=== PATIENT | female | born 1965 | race Caucasian/White ===

== ENCOUNTER 2019-02-14 07:03 | Outpatient (CLI) | payer BC ==
--- NOTE | 2019-02-14 10:13 | ULT ---
THYROID ULTRASOUND: Date: 02/14/19 COMPARISON: None. HISTORY: Acquired hypothyroidism. TECHNIQUE: Multiplanar Saunders scale sonographic imaging of the thyroid gland obtained. FINDINGS: The thyroid isthmus measures approximately 1-2 mm in AP dimension. Right lobe measures 3.3 x 1.2 x 1.2 cm and left lobe measures 3.2 x 1.0 x 1.3 cm. There is a 5.0 x 5.0 x 5.0 mm hypoechoic nodule with probable rim calcification within the superior a spect of the left lobe. There is a hypoechoic solid lesion along the superior margin of the left lobe of the thyroid gland. T his measures approximately 1.7 x 1.8 cm. It is difficult to tell if this is an exophytic lesion emana ting from the superior aspect of the left lobe of the thyroid gland or if this is a lesion abutting t he superior aspect of the left lobe. This study is compared to the 04/02/16 examination. The small nodule within the left lobe is unchange d. The abnormality along the superior margin of the left lobe is not well assessed. IMPRESSION: Questionable hypoechoic lesion along the superior margin of the left lobe. This is incompletely asses sed on this examination. Recommend CT neck with IV contrast for further assessment. CODE T. POS: [facility]
== END 2019-02-14 07:04 | disposition home or self-care (01) ==
LOC: SCSULT 07:03
PROVIDERS: ATTEND Internal Medicine Endocrinology, Diabetes & Metabolism
DX: E03.9 Hypothyroidism, unspecified (principal)
CPT/HCPCS: 76536

== ENCOUNTER 2020-02-28 07:56 | Outpatient (CLI) | payer BC ==
--- NOTE | 2020-02-28 08:20 | BD ---
EXAM: Bone densitometry using DEXA HISTORY: 54 yo female. Screening for postmenopausal osteoporosis FINDINGS: L1--bone mineral density 0.842 g/sq cm; T score -1.3 ; Z score -0.4 L2--bone mineral density 0.877 g/sq cm; T score -1.4 ; Z score -0.3 L3--bone mineral density 0.873 g/sq cm; T score -1.9 ; Z score -0.8 L4--bone mineral density 0.916 g/sq cm; T score -1.3 ; Z score -0.1 Total L1-L4--bone mineral density 0.878 g/sq cm; T score -1.5 ; Z score -0.4 Left femoral neck--bone mineral density0.728; T score -1.1 ; Z score 0.0 Total proximal left femur--bone mineral density 0.802; T score -1.1 ; Z score -0.4 The 10 year fracture risk for a major osteoporotic fracture is 5.7% and for a hip fracture is 0.3%. IMPRESSION: Osteopenia
--- NOTE | 2020-02-28 10:12 | ULT ---
THYROID ULTRASOUND: INDICATION: Followup thyroid nodule. COMPARISON: Prior exam dated 02/15/2019. FINDINGS: The right thyroid lobe measures 3.1 x 1.6 x 1.3 mm. Thyroid isthmus measures 0.22 cm. The left thyr oid lobe measures 2.9 x 1.1 x 1.3 mm. The mixed solid and cystic nodule within the mid left thyroid gland is relatively stable in size. Th ere is some peripheral rim calcification associated with the lesion. The lesion measures approximate ly 6.6 x 6.3 mm in size where it measured on the prior with my measurement 6.5 x 6.4 mm. The hypoechoic ill-defined region involving the medial aspect of the superior pole of the left thyroi d gland is poorly defined on the current examination but is likely represent on image 22 and image 31 of the current series. This lesion measures approximately 2.0 x 1.3 mm where it previously measured approximately 1.9 x 1.3 cm. This is not well defined on the current ultrasound examination, some of which may be related to artifact. No suspicious abnormality is seen within the right thyroid gland. IMPRESSION: 1. Stable TIRADS4 lesion involving the mid aspect of the left thyroid gland. A followup examination in 1 year is recommended to document stability. 2. Hypoechoic ill-defined region seen adjacent to the medial aspect of the superior pole of the left thyroid gland appears stable to the prior exam. As a conservative measure, would recommend consider ation for a CT of the neck with Iv contrast for further assessment. POS: [id number]
== END 2020-02-28 07:57 | disposition home or self-care (01) ==
LOC: BICMAMMO 07:56
PROVIDERS: ATTEND Internal Medicine Endocrinology, Diabetes & Metabolism
DX: Z13.820 Encounter for screening for osteoporosis (principal); E55.9 Vitamin D deficiency, unspecified; E03.9 Hypothyroidism, unspecified; E04.1 Nontoxic single thyroid nodule; M85.89 Other specified disorders of bone density and structure, multiple sites
CPT/HCPCS: 76536; 77080

== ENCOUNTER 2021-04-03 08:36 | Outpatient (CLI) | payer BC | END 2021-04-03 08:37 | disposition home or self-care (01) | LOC: BICULT 08:36 | PROVIDERS: ATTEND Otolaryngology Otolaryngic Allergy | DX: E04.1 Nontoxic single thyroid nodule (principal); Q96.9 Turner's syndrome, unspecified | CPT/HCPCS: 76536 ==

== ENCOUNTER 2021-10-23 15:59 | Inpatient (IN) | payer BC ==
[2021-10-23 16:30] LABS: #Eosinphils 0.1 thou/uL (0.0-0.7); #Lymphocytes 1.5 thou/uL (1.20-3.40); #Monocytes 1.1 thou/uL (0.11-0.59); #Neutrophils 9.1 thou/uL (1.40-6.50); %Eosinophils 0.7 % (0.0-10.0); %Monocytes 9.3 % (0.0-10.0); Hemoglobin 12.2 g/dL (12.0-16.0); Mean Corpuscular HGB CONC 32.3 g/dL (32.0-36.0); Mean Corpuscular Hemoglobin 30.8 pg (27.0-31.0); Mean Corpuscular Volume 95.4 fL (78.0-98.0); Mean Platelet Volume 6.9 fL (7.4-10.4); Platelet Count 482 thou/uL (130-400); RBC Distribution Width 14.5 % (11.5-14.5); Red Blood Cell (RBC) Count 3.95 mill/uL (4.20-5.40); White Blood Cell (WBC) Count 11.8 thou/uL (4.8-10.8)
[2021-10-23] MEDS ORDERED: Metoprolol Tartrate 5 MG/5 ML VIAL ONE ×3 (16:40→21:41)
[2021-10-23 16:50] LABS: ALT (SGPT) 42 U/L (8-55); AST (SGOT) 45 U/L (5-34); Albumin 3.7 g/dL (3.5-5.0); Alkaline Phosphatase 118 U/L (40-110); Anion Gap 16 mmol/L (10-20); BUN (Urea Nitrogen) 10 mg/dL (9.8-20.1); Bilirubin, Total 0.6 mg/dL (0.2-1.2); Calc. Creatinine Clearance 0 mL/min (70-130); Calcium 9.9 mg/dL (7.8-10.44); Carbon Dioxide 28 mmol/L (22-29); Chloride 97 mmol/L (98-107); Estimated GFR 90; Globulin 3.6 g/dL (2.4-3.5); Glucose 91 mg/dL (70-105); Potassium 3.7 mmol/L (3.5-5.1); Protein, Total 7.3 g/dL (6.0-8.3); Sodium 137 mmol/L (136-145)
[2021-10-23 17:12] LABS: CKMB 1.8 ng/mL (0-6.6)
[2021-10-23 18:36] LABS: INR-International Normal Ratio 2.1
[2021-10-23 18:37] LABS: PTT 54.9 sec (22.9-36.1)
[2021-10-23] MEDS ORDERED: Warfarin Sodium 2.5 MG TAB PO SCH (19:45)
[2021-10-23] MEDS ORDERED: Warfarin Sodium 2 MG TAB PO SCH (19:45)
[2021-10-23 19:48] LABS: Troponin I 0.063 ng/mL (< 0.028)
[2021-10-23] MEDS ORDERED: Nitroglycerin 0.4 MG TAB 1 EACH ONE (21:47)
[2021-10-23] MEDS ORDERED: Amiodarone 150 MG/3 ML VIAL ONE ×2 (21:59→22:13)
[2021-10-23] MEDS ORDERED: Ondansetron PF 4 MG/2 ML Vial IVP PRN (22:02)
[2021-10-23] MEDS ORDERED: Acetaminophen 325 MG TAB PO PRN (22:02)
[2021-10-23 23:17] LABS: Magnesium 1.9 mg/dL (1.6-2.6)
[2021-10-23 23:23] LABS: Troponin I 0.064 ng/mL (< 0.028)
[2021-10-24] MEDS: Amiodarone 450 MG, Admixture Fee 1 EACH in Dextrose 5% in Water 250 ML IVPB SCH ×2 (01:03→08:37)
[2021-10-24 01:19] VITALS: BMI 22.3
[2021-10-24 03:43] LABS: INR-International Normal Ratio 2.2; Prothrombin Time 24.6 sec (12.0-14.7)
[2021-10-24 03:50] LABS: #Eosinphils 0.1 thou/uL (0.0-0.7); #Monocytes 1.1 thou/uL (0.11-0.59); #Neutrophils 7.5 thou/uL (1.40-6.50); %Basophils 0.1 % (0.0-1.0); %Eosinophils 0.7 % (0.0-10.0); %Lymphocytes 10.5 % (21.0-51.0); %Monocytes 11.2 % (0.0-10.0); %Neutrophils 77.6 % (42.0-75.0); Hemoglobin 10.1 g/dL (12.0-16.0); Mean Corpuscular HGB CONC 32.3 g/dL (32.0-36.0); Mean Corpuscular Hemoglobin 31.7 pg (27.0-31.0); Mean Corpuscular Volume 98.2 fL (78.0-98.0); Mean Platelet Volume 6.9 fL (7.4-10.4); Platelet Count 365 thou/uL (130-400); RBC Distribution Width 14.5 % (11.5-14.5); Red Blood Cell (RBC) Count 3.19 mill/uL (4.20-5.40); White Blood Cell (WBC) Count 9.6 thou/uL (4.8-10.8)
[2021-10-24 03:52] LABS: Anion Gap 14 mmol/L (10-20); BUN (Urea Nitrogen) 8 mg/dL (9.8-20.1); Calc. Creatinine Clearance 66 mL/min (70-130); Calcium 8.7 mg/dL (7.8-10.44); Carbon Dioxide 24 mmol/L (22-29); Chloride 103 mmol/L (98-107); Estimated GFR 105; Glucose 97 mg/dL (70-105); Magnesium 2.1 mg/dL (1.6-2.6); Potassium 3.8 mmol/L (3.5-5.1); Sodium 137 mmol/L (136-145)
[2021-10-24] MEDS ORDERED: Enoxaparin Sodium 40 MG/0.4 ML SYRINGE SC SCH (05:00)
[2021-10-24] MEDS: Levothyroxine Sodium 88 MCG TAB PO SCH (05:20)
[2021-10-24] MEDS ORDERED: Furosemide 20 MG/2 ML VIAL SLOW IVP SCH (06:00)
[2021-10-24] MEDS: Digoxin 0.125 MG TAB PO SCH (08:00)
[2021-10-24] MEDS: Torsemide 10 MG TAB PO SCH (08:37)
[2021-10-24] MEDS ORDERED: Aspirin 81 mg Enteric Coated Tablet PO SCH (09:00)
[2021-10-24] MEDS ORDERED: Amiodarone 450 MG in Dextrose 5% in Water 250 ML IVPB SCH (09:00)
[2021-10-24 09:45] LABS: Fluid, pH - Pleural Fld 7.45 (7.60 - 7.66)
[2021-10-24] MEDS ORDERED: predniSONE 20 MG TAB PO SCH (15:00)
[2021-10-24 15:37] LABS: Pleural Fluid, Protein 3.4 g/dL
[2021-10-24] MEDS: Warfarin Sodium 2 MG TAB PO SCH (16:30)
[2021-10-24] MEDS: Warfarin Sodium 2.5 MG TAB PO SCH (16:30)
[2021-10-25 03:56] LABS: #Lymphocytes 0.8 thou/uL (1.20-3.40); #Monocytes 0.8 thou/uL (0.11-0.59); #Neutrophils 9.5 thou/uL (1.40-6.50); %Basophils 0.2 % (0.0-1.0); %Eosinophils 0.3 % (0.0-10.0); %Monocytes 7.2 % (0.0-10.0); %Neutrophils 85.4 % (42.0-75.0); Hemoglobin 10.6 g/dL (12.0-16.0); Mean Corpuscular HGB CONC 32.6 g/dL (32.0-36.0); Mean Corpuscular Hemoglobin 31.3 pg (27.0-31.0); Mean Corpuscular Volume 96.1 fL (78.0-98.0); Mean Platelet Volume 6.8 fL (7.4-10.4); Platelet Count 426 thou/uL (130-400); RBC Distribution Width 14.3 % (11.5-14.5); Red Blood Cell (RBC) Count 3.37 mill/uL (4.20-5.40); White Blood Cell (WBC) Count 11.2 thou/uL (4.8-10.8)
[2021-10-25 04:10] LABS: INR-International Normal Ratio 3.3
[2021-10-25 04:15] LABS: Anion Gap 12 mmol/L (10-20); BUN (Urea Nitrogen) 9 mg/dL (9.8-20.1); Calc. Creatinine Clearance 70 mL/min (70-130); Carbon Dioxide 26 mmol/L (22-29); Chloride 102 mmol/L (98-107); Estimated GFR 106; Glucose 123 mg/dL (70-105); Potassium 3.8 mmol/L (3.5-5.1); Sodium 136 mmol/L (136-145)
[2021-10-25] MEDS: Levothyroxine Sodium 88 MCG TAB PO SCH (05:01)
[2021-10-25] MEDS ORDERED: Potassium Chloride 20 MEQ TAB PO SCH (08:15)
[2021-10-25] MEDS: Amiodarone 200 MG TAB PO SCH ×2 (09:14→20:46)
[2021-10-25] MEDS: Torsemide 10 MG TAB PO SCH (09:14)
[2021-10-25] MEDS: predniSONE 20 MG TAB PO SCH (09:15)
[2021-10-25] MEDS: Digoxin 0.125 MG TAB PO SCH (09:15)
[2021-10-25] MEDS: Warfarin Sodium 2 MG TAB PO SCH (16:27)
[2021-10-25] MEDS: Warfarin Sodium 2.5 MG TAB PO SCH (16:27)
[2021-10-26 04:37] LABS: #Eosinphils 0.2 thou/uL (0.0-0.7); #Lymphocytes 1.8 thou/uL (1.20-3.40); #Monocytes 1.2 thou/uL (0.11-0.59); #Neutrophils 10.1 thou/uL (1.40-6.50); %Basophils 0.1 % (0.0-1.0); %Eosinophils 1.2 % (0.0-10.0); %Lymphocytes 13.4 % (21.0-51.0); %Monocytes 9.3 % (0.0-10.0); Hemoglobin 10.3 g/dL (12.0-16.0); Mean Corpuscular HGB CONC 32.3 g/dL (32.0-36.0); Mean Corpuscular Hemoglobin 31.2 pg (27.0-31.0); Mean Corpuscular Volume 96.7 fL (78.0-98.0); Mean Platelet Volume 6.8 fL (7.4-10.4); Platelet Count 457 thou/uL (130-400); RBC Distribution Width 14.2 % (11.5-14.5); Red Blood Cell (RBC) Count 3.29 mill/uL (4.20-5.40); White Blood Cell (WBC) Count 13.3 thou/uL (4.8-10.8)
[2021-10-26 04:47] LABS: Prothrombin Time 43.5 sec (12.0-14.7)
[2021-10-26 04:57] LABS: INR-International Normal Ratio 4.5
[2021-10-26 05:04] LABS: Anion Gap 11 mmol/L (10-20); BUN (Urea Nitrogen) 10 mg/dL (9.8-20.1); Calc. Creatinine Clearance 68 mL/min (70-130); Calcium 9.1 mg/dL (7.8-10.44); Carbon Dioxide 28 mmol/L (22-29); Chloride 102 mmol/L (98-107); Estimated GFR 105; Glucose 95 mg/dL (70-105); Magnesium 1.9 mg/dL (1.6-2.6); Potassium 3.7 mmol/L (3.5-5.1); Sodium 137 mmol/L (136-145)
[2021-10-26] MEDS: Levothyroxine Sodium 88 MCG TAB PO SCH (05:49)
[2021-10-26] MEDS: Amiodarone 200 MG TAB PO SCH ×2 (08:35→20:28)
[2021-10-26] MEDS: predniSONE 20 MG TAB PO SCH (08:35)
[2021-10-26] MEDS: Digoxin 0.125 MG TAB PO SCH (08:36)
[2021-10-26] MEDS: Torsemide 10 MG TAB PO SCH (08:36)
[2021-10-27 05:17] LABS: #Eosinphils 0.2 thou/uL (0.0-0.7); #Lymphocytes 1.5 thou/uL (1.20-3.40); #Monocytes 1.3 thou/uL (0.11-0.59); #Neutrophils 8.2 thou/uL (1.40-6.50); %Eosinophils 1.8 % (0.0-10.0); %Lymphocytes 13.8 % (21.0-51.0); %Monocytes 11.3 % (0.0-10.0); %Neutrophils 73.1 % (42.0-75.0); Hemoglobin 10.9 g/dL (12.0-16.0); Mean Corpuscular HGB CONC 33.1 g/dL (32.0-36.0); Mean Corpuscular Hemoglobin 31.6 pg (27.0-31.0); Mean Corpuscular Volume 95.5 fL (78.0-98.0); Mean Platelet Volume 6.7 fL (7.4-10.4); Platelet Count 440 thou/uL (130-400); RBC Distribution Width 14.3 % (11.5-14.5); Red Blood Cell (RBC) Count 3.44 mill/uL (4.20-5.40); White Blood Cell (WBC) Count 11.2 thou/uL (4.8-10.8)
[2021-10-27 05:33] LABS: Anion Gap 12 mmol/L (10-20); BUN (Urea Nitrogen) 11 mg/dL (9.8-20.1); Calc. Creatinine Clearance 58 mL/min (70-130); Carbon Dioxide 28 mmol/L (22-29); Chloride 101 mmol/L (98-107); Estimated GFR 102; Glucose 97 mg/dL (70-105); Potassium 3.5 mmol/L (3.5-5.1); Sodium 137 mmol/L (136-145)
[2021-10-27 05:40] LABS: PTT 74.1 sec (22.9-36.1); Prothrombin Time 42.6 sec (12.0-14.7)
[2021-10-27 05:47] LABS: INR-International Normal Ratio 4.3
[2021-10-27] MEDS: Levothyroxine Sodium 88 MCG TAB PO SCH (06:19)
[2021-10-27] MEDS: Digoxin 0.125 MG TAB PO SCH (08:05)
[2021-10-27] MEDS: Amiodarone 200 MG TAB PO SCH ×2 (08:05→20:24)
[2021-10-27] MEDS: predniSONE 20 MG TAB PO SCH (08:05)
[2021-10-27] MEDS: Torsemide 10 MG TAB PO SCH (08:05)
[2021-10-27] MEDS ORDERED: Potassium Chloride 20 MEQ TAB PO SCH (09:00)
[2021-10-27] MEDS ORDERED: Warfarin Sodium 3 MG TAB PO SCH (17:00)
[2021-10-28] MEDS: Levothyroxine Sodium 88 MCG TAB PO SCH (05:21)
[2021-10-28 05:31] LABS: #Eosinphils 0.3 thou/uL (0.0-0.7); #Lymphocytes 1.7 thou/uL (1.20-3.40); #Monocytes 1.2 thou/uL (0.11-0.59); %Basophils 0.2 % (0.0-1.0); %Eosinophils 2.9 % (0.0-10.0); %Lymphocytes 15.4 % (21.0-51.0); %Monocytes 10.2 % (0.0-10.0); %Neutrophils 71.3 % (42.0-75.0); Hemoglobin 10.4 g/dL (12.0-16.0); Mean Corpuscular HGB CONC 31.7 g/dL (32.0-36.0); Mean Corpuscular Hemoglobin 30.6 pg (27.0-31.0); Mean Corpuscular Volume 96.5 fL (78.0-98.0); Mean Platelet Volume 6.8 fL (7.4-10.4); Platelet Count 425 thou/uL (130-400); RBC Distribution Width 14.4 % (11.5-14.5); Red Blood Cell (RBC) Count 3.38 mill/uL (4.20-5.40); White Blood Cell (WBC) Count 11.2 thou/uL (4.8-10.8)
[2021-10-28 05:36] LABS: INR-International Normal Ratio 3.1; PTT 58.3 sec (22.9-36.1); Prothrombin Time 32.2 sec (12.0-14.7)
[2021-10-28 05:47] LABS: Anion Gap 11 mmol/L (10-20); BUN (Urea Nitrogen) 11 mg/dL (9.8-20.1); Calc. Creatinine Clearance 58 mL/min (70-130); Carbon Dioxide 25 mmol/L (22-29); Chloride 104 mmol/L (98-107); Estimated GFR 102; Glucose 94 mg/dL (70-105); Potassium 4.2 mmol/L (3.5-5.1); Sodium 136 mmol/L (136-145)
[2021-10-28] MEDS: Digoxin 0.125 MG TAB PO SCH (08:13)
[2021-10-28] MEDS: Torsemide 10 MG TAB PO SCH (08:14)
[2021-10-28] MEDS: predniSONE 20 MG TAB PO SCH (08:14)
[2021-10-28] MEDS: Amiodarone 200 MG TAB PO SCH ×2 (08:14→21:17)
[2021-10-28] MEDS ORDERED: PROPOFOL 20 ML ONE (09:50)
[2021-10-28] MEDS ORDERED: Warfarin Sodium 2 MG TAB PO SCH (17:00)
[2021-10-28] MEDS ORDERED: Warfarin Sodium 3 MG TAB PO SCH (17:00)
[2021-10-29 05:34] LABS: INR-International Normal Ratio 2.9
[2021-10-29] MEDS: Levothyroxine Sodium 88 MCG TAB PO SCH (06:05)
[2021-10-29 07:27] VITALS: BP 133/65; TEMP 97.1
[2021-10-29] MEDS: Digoxin 0.125 MG TAB PO SCH (08:09)
[2021-10-29] MEDS: Amiodarone 200 MG TAB PO SCH (08:10)
[2021-10-29] MEDS: predniSONE 20 MG TAB PO SCH (08:10)
[2021-10-29] MEDS: Torsemide 10 MG TAB PO SCH (08:10)
[2021-10-29] MEDS ORDERED: Warfarin Sodium 3 MG TAB PO SCH ×2 (17:00)
[2021-10-29] MEDS ORDERED: Amiodarone 200 MG TAB PO SCH (21:00)
== END 2021-10-29 10:55 | disposition home or self-care (01) | DRG 314 ==
LOC: ERS 15:59 → ERHOLD 18:45 → 2NO 21:17 → ERHOLD 22:26 → IMCU/EMU 10-24 00:51 → 2SW 10-25 19:08
PROVIDERS: ADMIT Internal Medicine; ATTEND Internal Medicine
PROC: 0W993ZZ Drainage of Right Pleural Cavity, Percutaneous Approach (ICD-10-PCS; principal; 2021-10-24)
PROC: B24BZZ4 Ultrasonography of Heart with Aorta, Transesophageal (ICD-10-PCS; 2021-10-28)
DX: I97.0 Postcardiotomy syndrome (principal); J96.01 Acute respiratory failure with hypoxia; I47.1 Supraventricular tachycardia; I48.4 Atypical atrial flutter; J91.8 Pleural effusion in other conditions classified elsewhere; Z20.822 Contact with and (suspected) exposure to COVID-19; E03.9 Hypothyroidism, unspecified; I48.0 Paroxysmal atrial fibrillation; Y83.8 Other surgical procedures as the cause of abnormal reaction of the patient, or of later complication, without mention of misadventure at the time of the procedure; I51.3 Intracardiac thrombosis, not elsewhere classified; R79.1 Abnormal coagulation profile; Z95.2 Presence of prosthetic heart valve; Q96.9 Turner's syndrome, unspecified; Z91.041 Radiographic dye allergy status; Z79.899 Other long term (current) drug therapy; Z79.82 Long term (current) use of aspirin; Z79.890 Hormone replacement therapy; Z79.01 Long term (current) use of anticoagulants; Z85.828 Personal history of other malignant neoplasm of skin; Z90.89 Acquired absence of other organs; Z98.890 Other specified postprocedural states; Z86.010 Personal history of colon polyps; Z82.49 Family history of ischemic heart disease and other diseases of the circulatory system; Z87.74 Personal history of (corrected) congenital malformations of heart and circulatory system
CPT/HCPCS: 36415; 71045; 80048; 80053; 82150; 82553; 82945; 83615; 83735; 83880; 83986; 84157; 84443; 84484; 85025; 85610; 85730; 88112; 88305; 92960; 93005; 93010; 93306; 93312; 96361; 96365; 96375; 96376; J0282; J1650; J2704; J7070; J7512; U0003; U0005

== ENCOUNTER 2021-11-10 00:51 | Emergency (ER) | payer BC ==
[2021-11-10] MEDS ORDERED: Oxymetazoline HCl 0.05% (30 ML BOT) ONE (00:59)
== END 2021-11-10 02:13 | disposition home or self-care (01) ==
LOC: ERS 00:51
DX: R04.0 Epistaxis (principal); E03.9 Hypothyroidism, unspecified; Z79.01 Long term (current) use of anticoagulants; Z79.899 Other long term (current) drug therapy; Z79.82 Long term (current) use of aspirin
CPT/HCPCS: 99283

== ENCOUNTER 2021-12-18 08:18 | Outpatient (CLI) | payer BC | END 2021-12-18 08:19 | disposition home or self-care (01) | LOC: RAD 08:18 | PROVIDERS: ATTEND Internal Medicine Critical Care Medicine | DX: R06.09 Other forms of dyspnea (principal) | CPT/HCPCS: 71046 ==

== ENCOUNTER 2022-03-26 09:30 | Outpatient (CLI) | payer BC | END 2022-03-26 09:31 | disposition home or self-care (01) | LOC: RAD 09:30 | PROVIDERS: ATTEND Internal Medicine Critical Care Medicine | DX: R06.00 Dyspnea, unspecified (principal) | CPT/HCPCS: 71046 ==

== ENCOUNTER 2022-04-11 06:07 | Day surgery (SDC) | payer BC ==
[2022-04-09 14:51] VITALS: BMI 22.1
[2022-04-11] MEDS ORDERED: PROPOFOL 20 ML ONE (07:34)
== END 2022-04-11 09:19 | disposition home or self-care (01) ==
LOC: SDC 06:07
PROVIDERS: ATTEND Internal Medicine Cardiovascular Disease
PROC: 5A2204Z Restoration of Cardiac Rhythm, Single (ICD-10-PCS; principal; 2022-04-11)
PROC: B246ZZ4 Ultrasonography of Right and Left Heart, Transesophageal (ICD-10-PCS; principal; 2022-04-11)
DX: I48.4 Atypical atrial flutter (principal); I48.0 Paroxysmal atrial fibrillation; I51.7 Cardiomegaly; I44.0 Atrioventricular block, first degree; I45.10 Unspecified right bundle-branch block; Q96.9 Turner's syndrome, unspecified; E03.9 Hypothyroidism, unspecified; Z79.01 Long term (current) use of anticoagulants; Z79.82 Long term (current) use of aspirin; Z79.890 Hormone replacement therapy; Z79.899 Other long term (current) drug therapy; Z91.041 Radiographic dye allergy status; Z95.2 Presence of prosthetic heart valve
CPT/HCPCS: 92960; 93005; 93010; 93312; J2704

== ENCOUNTER 2023-04-01 13:21 | Outpatient (CLI) | payer BC | END 2023-04-01 13:22 | disposition home or self-care (01) | LOC: BICULT 13:21 | PROVIDERS: ATTEND Otolaryngology Otolaryngic Allergy | DX: E04.1 Nontoxic single thyroid nodule (principal) | CPT/HCPCS: 76536 ==

== ENCOUNTER 2023-05-26 06:07 | Day surgery (SDC) | payer BC ==
[2023-05-21 14:25] VITALS: BMI 22.0
[2023-05-21 14:54] LABS: Hematocrit 36.6 % (34.9-44.5); Mean Corpuscular HGB CONC 35.5 g/dL (32.0-36.0); Mean Corpuscular Volume 95.8 fl (81.6-98.3); Mean Platelet Volume 9.6 fl (7.4-10.4); Platelet Count 243 10x3/uL (150-450); RBC Distribution Width 11.9 % (11.5-14.5); Red Blood Cell (RBC) Count 3.82 10x6/uL (3.90-5.03); White Blood Cell (WBC) Count 11.9 10x3/uL (3.5-10.5)
[2023-05-21 15:12] LABS: Anion Gap 12 mmol/L (10-20); BUN (Urea Nitrogen) 21 mg/dL (9.8-20.1); Calc. Creatinine Clearance 47 mL/min (70-130); Calcium 9.3 mg/dL (7.8-10.44); Carbon Dioxide 24 mmol/L (22-29); Chloride 107 mmol/L (98-107); Estimated GFR 84; Glucose 129 mg/dL (70-105); Potassium 3.7 mmol/L (3.5-5.1); Sodium 139 mmol/L (136-145)
[2023-05-21 15:17] LABS: INR-International Normal Ratio 2.5; Prothrombin Time 26.1 sec (9.5-12.1)
== END 2023-05-26 08:25 | disposition home or self-care (01) ==
LOC: SDC 06:07
PROVIDERS: ATTEND Internal Medicine Cardiovascular Disease
PROC: 5A2204Z Restoration of Cardiac Rhythm, Single (ICD-10-PCS; principal; 2023-05-26)
DX: I48.19 Other persistent atrial fibrillation (principal); Z95.2 Presence of prosthetic heart valve; Z91.041 Radiographic dye allergy status
CPT/HCPCS: 80048; 85027; 85610; 92960; 93005; 93010

== ENCOUNTER 2024-04-07 12:31 | Outpatient (CLI) | payer BC | END 2024-04-07 12:32 | disposition home or self-care (01) | LOC: BICULT 12:31 | PROVIDERS: ATTEND Otolaryngology Otolaryngic Allergy | DX: E04.1 Nontoxic single thyroid nodule (principal) | CPT/HCPCS: 76536 ==